=== PATIENT | male | born 1960 | race Caucasian/White ===

== ENCOUNTER 2017-05-28 17:23 | Emergency (ER) | payer BC ==
[2017-05-28] MEDS ORDERED: HYDROcodone/APAP 5/325MG 1 TAB TABLET (18:43)
[2017-05-28] MEDS: HYDROcodone/APAP 5/325MG 1 TAB TABLET PO (18:44)
== END 2017-05-28 18:46 | disposition home or self-care (01) ==
LOC: ER 18:46
DX: M25.562 Pain in left knee (principal)
CPT/HCPCS: 99283